=== PATIENT | female | born 1945 | race Caucasian/White ===

== ENCOUNTER 2016-07-21 08:32 | Emergency (ER) | payer MEDICARE | END 2016-07-21 09:25 | disposition home or self-care (01) | LOC: ED 08:32 | DX: S82.892A Other fracture of left lower leg, initial encounter for closed fracture (principal); E11.9 Type 2 diabetes mellitus without complications; I10 Essential (primary) hypertension; Z79.4 Long term (current) use of insulin; X50.0XXA Overexertion from strenuous movement or load, initial encounter; Y93.89 Activity, other specified; Y92.810 Car as the place of occurrence of the external cause ==